=== PATIENT | female | born 1960 | race Caucasian/White ===

== ENCOUNTER 2016-10-24 07:18 | Day surgery (SDC) | payer BC, OTHER ==
[2016-10-23 11:12] VITALS: BMI 23.8
[2016-10-24] MEDS ORDERED: MIDAZOLAM HCL 2 MG/2 ML SINGLE DOSE VIAL ONE (08:45)
[2016-10-24] MEDS ORDERED: PROPOFOL 20 ML ONE ×2 (08:45)
[2016-10-24] MEDS ORDERED: KETOROLAC TROMETHAMINE 30 MG/1 ML VIAL ONE (08:45)
[2016-10-24] MEDS ORDERED: ceFAZolin SODIUM 1 GM VIAL ONE (08:45)
[2016-10-24] MEDS ORDERED: ceFAZolin SODIUM 1 GM VIAL IVPB ONE (09:00)
[2016-10-24] MEDS ORDERED: LIDOCAINE HCL 1%, 10 MG/ML (50 mL VIAL) IJ ONE (09:12)
[2016-10-24] MEDS ORDERED: BUPIVACAINE HCL/PF 0.5% (5MG/ML) 10 ML VIAL IJ ONE (09:12)
--- NOTE | 2016-10-24 09:39 | OP ---
Operative Note - Note: Operative Date: 10/24/16 Pre-Operative Diagnosis: left CTS Operation: left CTR, tenosynovectomy Post-Operative Diagnosis: Same as Pre-op Surgeon: Reji Alegria Clinical Rehabilitation Specialist: Alen Alexis Anesthesiologist/SENIOR PAYROLL MANAGER: Janet Whitaker Anesthesia: General, Local Specimens Removed: tenosynovium Estimated Blood Loss (mls): 0 Drains, Volume Out (mls): 0 Blood Volume Replaced (mls): 0 Fluid Volume Replaced (mls): 500 Operative Report Dictated: Yes
[2016-10-24] MEDS ORDERED: oxyCODONE HCL 5 MG TABLET PO PRN (09:41)
[2016-10-24] MEDS ORDERED: IBUPROFEN 800 MG/8 ML IJ IVPB PRN (09:41)
[2016-10-24] MEDS ORDERED: ONDANSETRON 4 MG/2 ML VIAL IVPUSH PRN (09:41)
[2016-10-24] MEDS ORDERED: LACTATED RINGERS SOLUTION 1,000 ML IV SCH (09:45)
[2016-10-24] MEDS ORDERED: BUPIVACAINE HCL/PF 0.5% (5MG/ML) 10 ML VIAL ONE (09:51)
[2016-10-24] MEDS ORDERED: LIDOCAINE HCL 1%, 10 MG/ML (20ML VIAL) ONE (09:51)
--- NOTE | 2016-10-24 11:33 | SPEC ---
DATE OF OPERATION: 10/24/2016 PREOPERATIVE DIAGNOSIS: Left carpal tunnel syndrome. POSTOPERATIVE DIAGNOSIS: Left carpal tunnel syndrome. PROCEDURE: Left carpal tunnel release and tenosynovectomy. SURGEON: Reji Alegria MD HOG STOMACH PREPARER: Alen Alexis MD ANESTHESIA: MAC anesthesia, local injection of 12 mL of 0.50% Marcaine and 1% Lidocaine mix. ANESTHESIOLOGIST: Janet Whitaker MD DRAINS: None. COMPLICATIONS: None. SPECIMEN: Tenosynovium, left wrist. BLOOD LOSS: None. BLOOD GIVEN: None. FLUID REPLACEMENT: 500 mL of Plasmalyte. INDICATIONS: This patient is a 56-year-old female with a preoperative diagnosis of significant recurrent left carpal tunnel syndrome. After understanding the potential risks, complications, alternatives, and benefits to surgery versus nonsurgical treatment, the patient elected to undergo this procedure. She understands she may have temporary or permanent paresthesias and a lack of complete relief of her symptoms including continued numbness and weakness. DESCRIPTION OF PROCEDURE: The patient was brought to the operating room, peripheral IV placed and intravenous sedation was given. One gram of intravenous Ancef was given. MAC anesthesia was induced. A tourniquet was applied to the left upper arm and the left upper extremity was prepped and draped in sterile fashion. The entire case was done under 3.8 loupe magnification. A marking pen was utilized to [place] out a longitudinal incision in an already existing skin crease. Twenty mL of 0.5% Marcaine mixed with 1% Lidocaine was injected in and around the surgical incision. The left upper extremity was elevated, exsanguinated with an Esmarch bandage and the tourniquet inflated to 250 mmHg. A No. 15 scalpel blade was utilized to cut down through the skin. Subcutaneous hemostasis was achieved with the bipolar cautery. Dissection was done through the superficial palmar fascia. Self-retaining retractors were placed into the wound. Under direct visualization, the transverse carpal ligament was transected with a No. 15 scalpel blade, exposing the median nerve and the contents of the carpal tunnel. The distal and proximal extents of the release were completed with a Littler scissor and checked with irrigation and my small finger. They were seen to be complete. Limited dissection was done on the radial side of the median nerve and more extensive dissection was done on the ulnar side of the median nerve. The patients nerve was seen to be quite compressed by epineurium and therefore a limited epineurotomy was performed. A Ragnell retractor was used to gently retract the median nerve in a radial direction. The patient had a lot of tenosynovitis and therefore a tenosynovectomy was performed off all 9 flexor tendons. This was passed off the field as tenosynovium left wrist. The floor of the carpal tunnel was checked. There were no abnormal masses or ganglion cysts. The area was copiously irrigated and washed out and closure begun. Undyed 4-0 Vicryl was used to close the deep dermal layer. Final skin reapproximation was done with horizontal mattress 4-0 nylon sutures. The area was then washed and dried, covered with Xeroform, 4x4s, fluffs between the fingers, Webril and a 4-inch plaster roll was utilized to make a volar splint, which was then wrapped with Ella and Coban. The tourniquet was taken down after a total tourniquet time of 16 minutes. There were no complications during the case. The patient tolerated the procedure well and was brought to the ambulatory recovery room in stable condition. Marilou [id number]
--- NOTE | 2016-10-24 11:37 | HP ---
Satellite H - Chief Complaint Chief Complaint: left cts - Past Medical History Allergies/Adverse Reactions: Allergies Allergy/AdvReac Type Severity Reaction Status Date / Time chocolate flavor Allergy Severe THROAT Verified 10/24/16 07:33 CLOSURE hazelnut Allergy Severe THROAT Verified 10/24/16 07:33 CLOSURE levetiracetam [From Keppra] Allergy Severe SEIZURES Verified 10/24/16 07:33 sesame seed Allergy Severe THROAT Verified 10/24/16 07:33 CLOSURE JALAPENO PEPPER Allergy Severe THROAT Uncoded 10/24/16 07:33 CLOSURE - Current Medications Current Medications: Home Medications Medication Instructions Recorded Lamotrigine 150 mg PO DAILY 06/11/16 Lovalo 25 mg PO DAILY 06/11/16 Multivitamin [Poly-Vitamin] 1 each PO DAILY 06/11/16 Hydrocodone/Acetaminophen [[place] 1 each PO Q6H PRN #40 tablet MDD 4 10/24/16 5-325 Tablet] Satellite Physical Exam - Physical Examination Vital Signs: Vital Signs Period Temp Pulse Resp BP Sys/[place] Pulse Ox Last 24 Hr 98.1 F-98.3 F 50-60 18-20 111-134/56-78 100-100 General Appearance: Well Nourished, Well Developed, Alert & Oriented x3 ENT: Clear Lung: Normal air movement Heart: Regular rate & rhythm Extremities: Other (left hand- + ttp, + tinels, + phalens emg + cts) Neurological: Intact, Alert, Oriented Satellite Impression/Plan - Impression/Plan Impression: left cts Operative Procedure: left ctr Date to be Performed: 10/24/16
[2016-10-24 12:02] VITALS: BP 125/76; PULSE 53
[2016-10-24 12:09] VITALS: TEMP 97.4
--- NOTE | 2016-10-25 13:53 | PATH ---
Surgical Pathology Report Patient Name: MURRAY ALLAN [facility]. Rec. #: [id number] /Age/Gender: 1960 (Age: 56) / F Account: [id number] Location: [facility] SURGICAL Taken: 10/24/2016 Received: 10/24/2016 Reported: 10/25/2016 Physicians: Alen Alexis M.D. Specimen(s) Received TENOSYNOVIUM LEFT WRIST Clinical History Carpal Tunnel syndrome left hand Final Diagnosis SOFT TISSUE, LEFT WRIST, CARPAL TUNNEL RELEASE: TENOSYNOVIUM. Electronically Signed Marco Heck M.D. Gross Description Received in formalin labeled "left hand tenosynovium," is a 2.3 x 1.8 x 0.3 cm aggregate of multiple sequeira-yellow, irregular portions of soft tissue, consistent with tenosynovium. The specimen is submitted in toto in one cassette. /10/24/201610/24/2016
== END 2016-10-24 12:11 | disposition home or self-care (01) ==
LOC: JASU-SURG 07:18
PROVIDERS: ATTEND Orthopaedic Surgery
PROC: 01N50ZZ Release Median Nerve, Open Approach (ICD-10-PCS; principal; 2016-10-24 08:30)
DX: G56.02 Carpal tunnel syndrome, left upper limb (principal)
CPT/HCPCS: 88304-TC; 94760